=== PATIENT | female | born 1990 | race Caucasian/White ===

== ENCOUNTER 2025-05-17 16:38 | Emergency (ER) | payer OTHER, SELFPAY ==
--- NOTE | ~2025-05-17 | XR_ITS ---
EXAM/PROCEDURE: XR chest 2V HISTORY: Cough X 2 weeks, SOB today COMPARISON: None available. TECHNIQUE: Two view(s) (PA and lateral) of the chest. FINDINGS: LUNGS: There is some density along the inferior right side of the mediastinum. It is inseparable from the left hilar structures. There are some strandy density at the left lung base. PLEURAL SPACES: Clear. No evidence of fluid or pneumothorax. HEART/ MEDIASTINUM: Grossly Normal in appearance. SOFT TISSUES: No significant findings. BONES: No acute osseous abnormality. IMPRESSION: It is possible this all relates to acute findings such as infiltrates. The findings on the right are inseparable from the right hilum. Chest CT is recommended for further evaluation. Reviewed, dictated and finalized at location B. TEGIC MARKETING MANAGER IMPRESSION: It is possible this all relates to acute findings such as infiltrates. The find ings on the right are inseparable from the right hilum. Chest CT is recommended for further evaluation.
[2025-05-17 16:51] VITALS: BP 137/87; PULSE 131; RESP 20; TEMP 36.4; O2SAT 99
--- NOTE | 2025-05-17 17:25 | ED_ITS ---
HPI - URI/Sore Throat General Chief Complaint: Upper Respiratory Infection Stated Complaint: URI Time Seen by Provider: 05/17/25 17:17 Source: patient and RN notes reviewed Mode of arrival: ambulatory Limitations: no limitations History of Present Illness HPI Narrative: 34-year-old male patient presents today with a 2 week history of cough and nasal congestion that started to improve over the last couple of days. Reports shortness of breath started today. She has tried Mucinex without relief. She also tried her albuterol inhaler to help with the shortness of breath come but this did not provide relief either. Denies fever. Reports asthma related to illness, weather change, exercise. Patient is . Related Data Home Medications ?Medication ?Instructions ?Recorded ?Confirmed ?Last Taken ?Type buspirone 10 mg tablet mg 05/17/25 Unknown History norethindrone (contraceptive) 0.35 mg 05/17/25 Unknow n History mg tablet (Meleya) Allergies Allergy/AdvReac Type Severity Reaction Status Date / Time No Known Allergies Allergy Unverified 01/28/15 11:42 [facility] Comments At time of signature, I have reviewed and agree with nursing past medical, surgical, social and family history unless otherwise noted. Please see nursing chart for further information. There is no relevant family history pertinent to the presenting complaint Exam Narrative: GENERAL: Ill-appearing, well-nourished, and in no acute distress. HEAD: Normocephalic, atraumatic. EYES: EOMI. No redness or drainage. Conjunctivae normal. ENT: Mucous membranes pink and moist. Nares congested. No rhinorrhea. TMs normal bilaterally. Throat normal. Uvula midline. NECK: Normal AROM. Supple. No lymphadenopathy. CHEST: No respiratory distress. Clear to auscultation. HEART: Regular rhythm. No murmur appreciated. Normal peripheral pulses.+ tachycardic EXTREMITIES: Normal range of motion. No edema. SKIN: Warm, dry, no rash. Capillary refill normal. Normal skin turgor. NEURO: No focal deficits. Alert and oriented x3. Gait steady. PSYCH: Normal affect. No signs of depression or anxiety. Course Course Level of Care: Express Care Visit Vital Signs Vital signs: Vital Signs Temperature 97.6 F 05/17/25 16:51 Pulse Rate 131 H 05/17/25 16:51 Respiratory Rate 20 05/17/25 16:51 Blood Pressure 137/87 05/17/25 16:51 Pulse Oximetry 99 05/17/25 16:51 Oxygen Delivery Room Air 05/17/25 16:51 Temperature 97.6 F 05/17/25 16:51 Pulse Rate 131 H 05/17/25 16:51 Respiratory Rate 20 05/17/25 16:51 Blood Pressure 137/87 05/17/25 16:51 Pulse Oximetry 99 05/17/25 16:51 Oxygen Delivery Room Air 05/17/25 16:51 Reviewed. Repeat pulse 104 MDM - URI/Sore Throat MDM Narrative Medical decision making narrative: 34-year-old male patient presents today with a 2 week history of cough and nasal congestion that started to improve over the last couple of days. Reports shortness of breath started today. She has tried Mucinex without relief. She also tried her albuterol inhaler to help with the shortness of breath come but this did not provide relief either. Denies fever. Reports asthma related to illness, weather change, exercise. Patient is . Upon exam, patient is ill-appearing with tachycardia and nasal congestion. Chest x-ray shows, ?there is some density along the inferior right inside of the mediastinum. It is inseparable from the left hilar structures. There was some strandy density at the left lung base.? Radiologist recommends chest CT for further evaluation. Patient will be treated for presumed pneumonia with Augmentin and prednisone and recommend following up with her PCP for further evaluation and imaging. Patient agrees with plan. Anticipatory guidance given. Vital signs stable Differential Diagnosis Differential diagnosis: Likely upper respiratory infection, bronchitis and other (pneumonia) Imaging Data Radiologist's impression: ITS Impressions Chest X-Ray 05/17/25 17:31 IMPRESSION: It is possible this all relates to acute findings such as infiltrates. The fi ndings on the right are inseparable from the right hilum. Chest CT is recommended for further evaluation. Critical Care Time Critical Care Time Critical Care Time: No Discharge Plan Discharge Clinical Impression: Pneumonia Qualifiers: Pneumonia type: due to unspecified organism Laterality: unspecified laterality Lung location: unspecified part of lung Qualified Code(s): J18.9 - Pneumonia, unspecified organism Patient Disposition: Home Condition: Stable Instructions: Antibiotic Form, Community Acquired Pneumonia (DC) Additional Instructions: Your x-ray shows some possible pneumonia. Please take the Augmentin and prednisone as directed. It is recommended that you have follow-up imaging of your chest. Please follow-up with your PCP in 1 week for further evaluation. As discussed, please go to the ER immediately if symptoms worsen. Patient Language: Portuguese Prescriptions: New prednisone 50 mg tablet 50 mg PO DAILY 5 Days Qty: 5 0RF amoxicillin-pot clavulanate 875-125 mg tablet 1 tablet PO Q12H 7 Days Qty: 14 0RF No Action buspirone 10 mg tablet norethindrone (contraceptive) [Meleya] 0.35 mg tablet Follow-up/Referrals: Regan,Kleber Olivares MD [Primary Care Provider] Stand Alone Forms: Work/School Release IP Time of Disposition: 17:54
[2025-05-17 18:00] VITALS: PULSE 104
--- OUTSIDE RECORDS SUMMARY | 2025-05-17 18:29 | XMS_ITS | Clinical Summary ---
Author Organization [address] Address [address] [place] [id number] Care Team Providers Care Buckle Sewer Machine Name Role Phone Kleber Spears MD Primary Care Provider + Blanca Ramos MD Unavailable [phone] Allergies No known active allergies Medications dextroamphetamine- amphetamine (ADDERALL) 15 mg tablet Take 0.5 tablets (7.5 mg total) by mouth 3 (three) times a week 2 Active cetirizine (ZyrTEC) 10 mg tablet Take 1 tablet (10 mg total) by mouth daily Active cholecalciferol (VITAMIN D-3) 2000 unit tablet Active no.[id number] 28 mg iron- 1 mg-200 mg capsule Take by mouth daily Active ibuprofen (ADVIL,MOTRIN) 600 mg tablet Take 1 tablet (600 mg total) by mouth every 6 (six) hours as needed for pain 40 tablet 5 Active escitalopram (LEXAPRO) 5 mg tablet Take 1 tablet (5 mg total) by mouth daily 90 tablet 1 5 Active norethindrone (MICRONOR) 0.35 mg tabletIndications: Contraception Take 1 tablet (0.35 mg total) by mouth daily 84 tablet 3 5 Active busPIRone (BUSPAR) 10 mg tabletIndications: Generalized Anxiety Disorder Take 1 tablet (10 mg total) by mouth 3 (three) times a day 90 tablet 11 5 02/19/20 26 Active Active Problems Problem Noted Date Diagnosed Date anxiety 12/24/2024 Assessment & Plan (01/22/2025 9:22 AM CDT): Plan to add Lexapro as she has been on in the past. She will call with any concerns. Supervision of normal 10/27/2024 ADD (attention deficit disorder) 06/04/2024 Overview (06/04/2024): Discussed adderall not recommended in as there is limited research. Discussed risks of withdrawal. Continue to slowly wean off. Resolved Problems Problem Noted Date Diagnosed Date Resolved Date Oligohydramnios in third tri mester, single or unspecified fetus 12/10/2024 01/22/2025 20 weeks gestation of 08/04/2024 01/22/2025 Immunizations Immunization Administration Dates Next Due Tdap 10/16/2024 Medical History Medical History Date Comments ADD (attention deficit disorder) Exercise-induced asthma Family History Medical History Relation Name Comments Diabetes Father Hyperlipidemia Father Hyperlipidemia Mother Relation Name Status Comments Father Mother Social History Tobacco Use Types Packs/Day Years Used Date Smoking Tobacco: Never Smokeless Tobacco: Never Tobacco Cessation:Counseling Given: Not Answered Humiliation, Afraid, Rape, and Kick questionnair e Answer Date Recorded Within the last year, have y ou been afraid of your partner or ex-partner? No 03/25/2023 Within the last year, have y ou been humiliated or emotionally abused in other ways by your partner or ex-partner? No Within the last year, have y ou been kicked, hit, slapped, or otherwise physically hurt by your partner or ex-partner? No 03/25/2023 Within the last year, have y ou been raped or forced to have any kind of sexual activity by your partner or ex-partner? No 03/25/2023 Social Connection and Isolation Panel Answer Date Recorded In a typical week, how many times do you talk on the phone with family, friends, or neighbors? Three times a week 12/10/2024 How often do you get togethe r with friends or relatives? Three times a week 12/10/2024 How often do you attend chur ch or jain services? Never 12/10/2024 Do you belong to any clubs o r organizations such as denominational groups, unions, fraternal or athletic groups, or school groups? No 12/10/2024 How often do you attend meet ings of the clubs or organizations you belong to? Never 12/10/2024 Are you , , di vorced, , never , or living with a partner? 12/10/2024 AUDIT-C Answer Date Recorded Q1: How often do you have a drink containing alcohol? Never 12/10/2024 Q2: How many drinks containi ng alcohol do you have on a typical day when you are drinking? Patient does not drink Q3: How often do you have si x or more drinks on one occasion? Never 12/10/2024 Overall Financial Resource Strain (CARDIA) Answe r Date Recorded How hard is it for you to pa y for the very basics like food, housing, medical care, and heating? Not hard at all 12/10/2024 PHQ-2 Answer Date Recorded PHQ-2 Total Score (If total score is 3 or more points, staff should administer the PHQ-9) 0 12/10/2024 [facility] - Occupational Stress Questionnaire Answer Date Recorded Do you feel stress - tense, restless, nervous, or anxious, or unable to sleep at night because your mind is troubled all the time - these days? Not at all 12/10/2024 Exercise Vital Sign Answer Date Recorde d On average, how many days pe r week do you engage in moderate to strenuous exercise (like a brisk walk)? 5 days 12/10/2024 On average, how many minutes do you engage in exercise at this level? 30 min 12/10/2024 Hunger Vital Sign Answer Date Recorded Within the past 12 months, y ou worried that your food would run out before you got the money to buy more. Never true 12/11/19 25 Within the past 12 months, t he food you bought just didn't last and you didn't have money to get more. Never true 12/10/2024 PRAPARE - Transportation Answer Date Re corded In the past 12 months, has l ack of transportation kept you from medical appointments or from getting medications? No 11/22 In the past 12 months, has l ack of transportation kept you from meetings, work, or from getting things needed for daily living? No 12/10/2024 [place] Depression Scale Answer Date Recorded [place] Depression Scale Total 11 01/22/2025 The thought of harming myself has occurred to me . Never 01/22/2025 PHQ-9 Answer Date Recorded PHQ-9 Total Score 0 12/10/2024 Housing Stability Vital Sign Answer Janes e Recorded In the last 12 months, was t here a time when you were not able to pay the mortgage or rent on time? No 12/10/2024 In the past 12 months, how m any times have you moved where you were living? 1 12/10/2024 At any time in the past 12 m [facility], were you homeless or living in a penitentiary (including now)? No 12/10/2024 Personal Safety Answer Date Recorded Have you ever been in or are you currently in a harmful physical or emotional relationship or is someone making you feel afraid or unsafe? Denies 12/10/2024 Comments No Sex and Gender Information Value Date Recorded Sex Assigned at Not on file Legal Sex Female 11:43 AM CDT Gender Identity Not on file Sexual Orientation Not on file Obstetrics History Para Term AB IAB SAB Ectopic Multiple Livin g Live Births 2 1 1 1 1 0 1 1 Date Outcome GA Total Labor Labor/2nd/3rd Weight Sex Type Anes PTL Cydney A1 A5 Name Clin SAB 2024 Term 39w 3d 5h 12m 3h 05m/1h 59m/0h 08m 3.252 kg (7 lb 2.7 oz) F Vagina l Epidur al N Livin g 9 9 Lori irvin, Pieter rolle MD Complications:None Delivery Location:This Fac[facility] ([facility]) Last Filed Vital Signs Vital Sign Reading Time Taken Comments Blood Pressure 110/78 01/22/2025 9:02 AM CDT Pulse 102 12/13/2024 8:45 AM CDT Temperature 36.1 C (96.9 F) 12/13/2024 8:45 AM CDT Respiratory Rate 18 12/13/2024 8:45 AM CDT Oxygen Saturation 97% 12/13/2024 8:45 AM CDT Inhaled Oxygen Concentration - - Weight 96.1 kg (211 lb 12.8 oz) 01/22/2025 9:02 AM CDT Height 165.1 cm (5' 5) 12/09/2024 4:15 PM CDT Body Mass Index 35.25 12/09/2024 4:15 PM CDT Plan of Treatment Health Maintenance Due Date Last Done Comments Varicella Vaccines (1 of 2 - 13+ 2-dose series) 2005 HPV Vaccines (1 - 3-dose SCDM series) 10/29/2019 Covid-19 Vaccine (2024- season) 2025 07/25/2020, 07/08/2020 Influenza Vaccine (#1) 2025 , 04/07/2023, 04/05/2023, Additional history exists Cervical Cancer Screening 06/04/20252023, 06/04/2024, 03/25/2023, Additional history exists Regular Well Visit/Exam 18-64 11/20/2025 11/20/2024, 03/25/2023 Depression Screening 01/22/2026 01/22/2025, 12/10/2024, 12/10/2024, Additional history exists DTaP/Tdap/Td Vaccine (8 - Td or Tdap) 10/16/2034 10/16/2024, 09/25/2006, 11/03/1997, Additional history exists Hepatitis B Screening Completed 07/05/1993 , 03/08/1993, 1992 Hepatitis C Screening Completed 09/16/2024, 024 Pneumococcal vaccine <65 Aged Out No longer eligible based on patient's age to complete this topic Procedures Procedure Name Priority Date/Time Associated Diagnosis Comments HEPATITIS C ANTIBODY Routine 09/16/2024 12:00 PM CDT Encounter for supervision of normal first in first trimester 24 weeks gestation of HIGH RISK HPV DNA DETECTION WITH GENOTYPING Routine 06/04/2024 8:30 AM BRACELET FORM COVERER Encounter for supervision of normal first in first trimester 12 weeks gestation of from Last 3 Months or Most Recently Relevant to Health Maintenance Results * Hepatitis C antibody Blood (09/16/2024 12:00 PM CDT) Hep C Ab Nonreactive Nonreactive Comment: Interpretive Data Nonreactive: Antibodies to HCV not detected. Does NOT exclude the possibility of recent exposure to HCV. Equivocal: Equivocal for HCV antibodies. Supplemental molecular testing will be automatically performed to determine infection status in accordance with current CDC screening recommendations. Reactive: Positive for HCV antibodies. This may represent current or past HCV infection. Supplemental molecular testing will be automatically performed to determine current infection status in accordance with current CDC screening recommendations. Interpretive data was last revised on 2019. Blood 09/16/2024 12:0 0 PM CDT 09/16/2024 7:32 PM CDT Blanca Ramos MD LAB MICROBIOLOGY - GENERAL ORDERABLES Final Result [facility] [id number] Department [place] [address] * High Risk HPV DNA Detection with Genotyping (Molecular component) (06/04/2024 8:30 AM BRACELET FORM COVERER) HPV HR 16 Not Detected Not Detected [facility] Comment:Testing performed by : [facility], [address] [place]., [address] HPV HR 18 Not Detected Not Detected [facility] Comment:Testing performed by : [facility], [address] [place]., [address] HPV HR Non 16/18 Not Detected Not Detected [facility] Comment: Interpretive Data Nucleic acid amplification for detection of high-risk Human Papilloma virus (HPV) is performed by the Lm Gary 6800 HPV test. This assay specifically detects HPV-16 and HPV-18 genotypes. The following HPV genotypes are detected as high-risk HPV: HPV-31, 33, 35, ,39, 45, 51, 52, 56, 58, 59, 66, and 68. This assay has been approved by the [place] Food and Drug Administration for detection of HPV in cervical specimens collected by a physician using an endocervical brush/spatula or cervical broom and placed in the ThinPrep Pap Test PreservCyt collection containers. The performance characteristics of this test have been verified by the [facility] Molecular Infectious Disease laboratory. Correlate with separately reported cytology results, as applicable. Interpretive data last revised 22 Testing performed by: [facility], [address] [facility], [place]., [address] Endocervical 06/04/2024 8:30 AM BRACELET FORM COVERER 06/05/2024 1:17 PM [employer]LET FORM COVERER Narrative ALVAROSUMMER - 06/05/2024 8:04 PM [employer]LET [employer]M COVERER Clinical history and diagnosis->a Number of vials->1 Testing type->Screening Last menstrual period (date if known)->a Susi Melara NP LAB BODY FLUIDS AND STOOLS ORDERABLES Final Result [facility] [id number] Department [place] [address] [facility] from Last 3 Months or Most Recently Relevant to Health Maintenance Insurance [facility] [facility] [employer] Advance Directives For more information, please contact: [phone] * Full Code (Latest Code Status on File) Date Activated Date Inactivated Comments 12/12/2024 2:42 PM 12/13/2024 9:22 PM * Full Code Date Activated Date Inactivated Comments 12/10/2024 5:56 PM 12/12/2024 2:42 PM Full CPR in case of cardiopulmonary arrest Care Teams Buckle [employer]er Machine Relationship Specialty Start Date End Date Kleber Spears MD PCP - General 03/09/19 Blanca Ramos MD [address] [place] [address] [place] [address] Consulting Physician Obstetrics and Gynecology 12/13/24
== END 2025-05-17 18:01 | disposition home or self-care (01) ==
PROVIDERS: Emergency Provider Nurse Practitioner; PCP Family Medicine
DX: J18.9 Pneumonia, unspecified organism (principal); Z79.899 Other long term (current) drug therapy
CPT/HCPCS: 71046; 99203; G0463